=== PATIENT | male | born 1970 | race Two or more races ===

== ENCOUNTER 2019-04-01 09:15 | Observation (INO) | payer MEDICAID ==
[~2019-04-01] VITALS: Ht 175.3 cm; Wt 81.6 kg
[~2019-04-01 09:15] MED LIST: Pantoprazole Inj IVP ONE
--- NOTE | 2019-04-01 09:25 | NUR ---
ED Nurse Note: PT BROUGHT IN BY RA Jennings FROM HIS APARTMENT DUE TO OD OF UNKNOWN AMOUNT OF FENTANYL 20-30 MINS PRIOR ED ARRIVAL. PER EMS, PT'S AUNTIE GAVE 4MG NARCAN INTRANASAL AND ANOTHER 4MG NARCAN GIVEN BY EMS EN ROUTE. AAO X4, RESTLESS WITH GENERALIZED TREMORS NOTED. NO RESPIRATORY DISTRESS. PT VOMITED A LARGE AMOUNT OF UNDIGESTED FOOD.
--- NOTE | 2019-04-01 09:45 | NUR ---
ED Nurse Note: CALLED RT TO SET UP END TIDAL CO2 MONITORING PER ERMD ORDER. 38MMHG READING AT THIS TIME.
[2019-04-01 09:54] VITALS: BP 149/109
--- NOTE | 2019-04-01 09:55 | NUR ---
ED Nurse Note: PT REFUSED FOR RN TO TAKE A LOOK INSIDE HIS SMALL WALLET. PT STATES THAT HE HAS MONEY IN THERE.
--- NOTE | 2019-04-01 10:02 | Emergency Room Report ---
History of Present Illness General Chief Complaint: Overdose Source: EMS Present Illness HPI Brought in by EMS. His girlfriend called because he was not breathing. Paramedics found him with a respiratory rate of 6. They gave him 4 of Narcan intranasally. Patient woke up gradually and started vomiting. He thought that he was smoking marijuana but apparently was laced with fentanyl. The patient is unable to answer other questions at this time. Allergies: Coded Allergies: No Known Allergies (Unverified , 04/01/19) Patient History Limited by: medical condition Past Medical History: see triage record Social History: Reports: drug use; Denies: smoking Social History Narrative With girlfriend Reviewed Nursing Documentation: PMH: Agreed; PSxH: Agreed Review of Systems All Other Systems: limited Physical Exam Vital Signs Date Time Temp Pulse Resp B/P (MAP) Pulse Ox O2 Delivery O2 Flow Rate FiO2 04/01/19 09:15 96.8 106 31 105/76 (86) 94 Room Air Sp02 EP Interpretation: reviewed, abnormal - Interpreted as low by me General Appearance: mild distress - Vomiting, lethargic Head: normocephalic Eyes: bilateral eye PERRL, bilateral eye Scleral Injection ENT: moist mucus membranes, other - Some blood coming from his nose Neck: full range of motion, supple, no bony tend Respiratory: chest non-tender, lungs clear, normal breath sounds Cardiovascular #1: regular rate, rhythm, no edema Cardiovascular #2: 2+ radial (L) Gastrointestinal: soft, no guarding, no rebound, other - Vomiting guaiac positive material, overweight Musculoskeletal: digits/nails normal, normal range of motion Neurologic: motor strength/tone normal, DTRs symmetric, sensory intact, oriented - X2 Psychiatric: depressed affect Skin: no rash, other - Tattoos Medical Decision Making Diagnostic Impression: Primary Impression: Accidental fentanyl overdose Qualified Codes: T40.4X1A - Poisoning by other synthetic narcotics, accidental (unintentional), initial encounter Additional Impressions: GI bleed Qualified Codes: K92.2 - Gastrointestinal hemorrhage, unspecified Amphetamine abuse ER Course Patient presents after inadvertent fentanyl overdose and receiving Narcan. Differential includes fentanyl overdose, electrolyte imbalance, aspiration, acute anoxic damage to brain and heart, other substance ingestion amongst others. Patient will be evaluated with EKG, chest x-ray and labs. Although his lethargic he has a nonfocal neurologic exam and CT of the head is not indicated. He will receive repeat neurologic evaluations and may need to be placed on a Narcan drip.. He is vomiting guaiac positive material and will be treated with Protonix. Type and Rh sent. Also treated with antiemetic. Patient is placed on CO2 monitor. CO2 monitor 38. EKG without injury. care management coordinator sinus rhythm. Chest x-ray no aspiration. Labs with normal H&H. Tox screen positive for amphetamines. Patient still somnolent. Does wake with shaking. CO2 39 (about the same). Due to GI bleed and OD, needs observation. At time of discharge consideration for giving prescription for Narcan. Laboratory Tests Test 04/01/19 09:30 04/01/19 10:30 White Blood Count 9.3 K/UL (4.8-10.8) Red Blood Count 5.35 M/UL (4.70-6.10) Hemoglobin 17.2 G/DL (14.2-18.0) Hematocrit 50.3 % (42.0-52.0) Mean Corpuscular Volume 94 FL (80-99) Mean Corpuscular Hemoglobin 32.2 PG (27.0-31.0) H Mean Corpuscular Hemoglobin Concent 34.3 G/DL (32.0-36.0) Red Cell Distribution Width 11.6 % (11.6-14.8) Platelet Count 357 K/UL (150-450) Mean Platelet Volume 5.0 FL (6.5-10.1) L Neutrophils (%) (Auto) 35.5 % (45.0-75.0) L Lymphocytes (%) (Auto) 52.6 % (20.0-45.0) H Monocytes (%) (Auto) 8.8 % (1.0-10.0) Eosinophils (%) (Auto) 1.9 % (0.0-3.0) Basophils (%) (Auto) 1.2 % (0.0-2.0) Sodium Level 141 MMOL/L (136-145) Potassium Level 3.8 MMOL/L (3.5-5.1) Chloride Level 100 MMOL/L (98-107) Carbon Dioxide Level 32 MMOL/L (21-32) Anion Gap 9 mmol/L (5-15) Blood Urea Nitrogen 13 mg/dL (7-18) Creatinine 1.2 MG/DL (0.55-1.30) Estimate Glomerular Filtration Rate > 60 mL/min (>60) Glucose Level 167 MG/DL (74-106) H Lactic Acid Level 3.70 mmol/L (0.4-2.0) H 1.10 mmol/L (0.66-2.22) Calcium Level 8.9 MG/DL (8.5-10.1) Total Bilirubin 0.4 MG/DL (0.2-1.0) Aspartate Amino Transferase (AST) 30 U/L (15-37) Alanine Aminotransferase (ALT) 72 U/L (12-78) Alkaline Phosphatase 95 U/L (46-116) Total Creatine Kinase 158 U/L (26-308) Troponin I 0.000 ng/mL (0.000-0.056) Total Protein 7.5 G/DL (6.4-8.2) Albumin 3.8 G/DL (3.4-5.0) Globulin 3.7 g/dL Albumin/Globulin Ratio 1.0 (1.0-2.7) Salicylates Level 1.6 ug/mL (2.8-20) L Acetaminophen Level < 2 MCG/ML (10-30) L Serum Alcohol < 3 mg/dL Urine Color Pale yellow Urine Appearance Clear Urine pH 6 (4.5-8.0) Urine Specific [place] 1.020 (1.005-1.035) Urine Protein 1+ (NEGATIVE) H Urine Glucose (UA) Negative (NEGATIVE) Urine Ketones Negative (NEGATIVE) Urine Blood 1+ (NEGATIVE) H Urine Nitrite Negative (NEGATIVE) Urine Bilirubin Negative (NEGATIVE) Urine Urobilinogen Normal MG/DL (0.0-1.0) Urine Leukocyte Esterase Negative (NEGATIVE) Urine RBC 0-2 /HPF (0 - 0) H Urine WBC 0-2 /HPF (0 - 0) Urine Squamous Epithelial Cells Occasional /LPF Urine Bacteria Occasional /HPF (NONE) Urine Hyaline Casts 0-2 /LPF (NONE) H Urine Fine Granular Casts 0-2 /LPF (NONE) H Urine Opiates Screen Negative (NEGATIVE) Urine Barbiturates Screen Negative (NEGATIVE) Phencyclidine (PCP) Screen Positive (NEGATIVE) H Urine Amphetamines Screen Positive (NEGATIVE) H Urine Benzodiazepines Screen Negative (NEGATIVE) Urine Cocaine Screen Negative (NEGATIVE) Urine Marijuana (THC) Screen Positive (NEGATIVE) H EKG Diagnostic Results Rate: normal Rhythm: NSR ST Segments: no acute changes Rhythm Strip Diag. Results EP Interpretation: yes Rhythm: NSR, no PVC's, no ectopy Chest X-Ray Diagnostic Results Chest X-Ray Diagnostic Results : Chest X-Ray Ordered: Yes # of Views/Limited/Complete: 1 View Indication: Other EP Interpretation: Yes Interpretation: no consolidation, no effusion, no pneumothorax Impression: No acute disease Electronically Signed by: Electronically signed by Guillaume Michele MD Last Vital Signs Date Time Temp Pulse Resp B/P (MAP) Pulse Ox O2 Delivery O2 Flow Rate FiO2 04/01/19 12:15 97.0 98 17 154/91 99 Room Air Status: improved Disposition: PLACE IN OBSERVATION Condition: Serious Scripts Unable to Obtain Active Prescriptions or Reported Meds Referrals: NOT CHOSEN IPA/,REFERRING (PCP) Guillaume Michele MD Apr 01, 2019 10:02
--- NOTE | 2019-04-01 10:11 | NUR ---
ED Nurse Note: PT IS CALMER AT THIS TIME. END TIDAL CO2 AT [address] MORROW AWARE.
[2019-04-01 10:13] LABS: BASOPHILS % (AUTO) 1.2 % (0.0-2.0); EOSINOPHILS % (AUTO) 1.9 % (0.0-3.0); HEMATOCRIT 50.3 % (42.0-52.0); HEMOGLOBIN 17.2 G/DL (14.2-18.0); LYMPHOCYTES % (AUTO) 52.6 % (20.0-45.0); MEAN CORPUSCULAR VOLUME 94 FL (80-99); MONOCYTES % (AUTO) 8.8 % (1.0-10.0); NEUTROPHILS % (AUTO) 35.5 % (45.0-75.0); PLATELET COUNT 357 K/UL (150-450); RED BLOOD COUNT 5.35 M/UL (4.70-6.10); RED CELL DISTRIBUTION WIDTH 11.6 % (11.6-14.8); WHITE BLOOD COUNT 9.3 K/UL (4.8-10.8)
[2019-04-01 10:15] LABS: ANION GAP 9 mmol/L (5-15); BLOOD UREA NITROGEN 13 mg/dL (7-18); CALCIUM 8.9 MG/DL (8.5-10.1); CARBON DIOXIDE 32 MMOL/L (21-32); CHLORIDE 100 MMOL/L (98-107); CREATININE 1.2 MG/DL (0.55-1.30); POTASSIUM 3.8 MMOL/L (3.5-5.1); SODIUM 141 MMOL/L (136-145)
[2019-04-01 10:20] LABS: ALANINE AMINOTRANSFERASE 72 U/L (12-78); ALBUMIN 3.8 G/DL (3.4-5.0); ALKALINE PHOSPHATASE 95 U/L (46-116); ASPARTATE AMINO TRANSFERASE 30 U/L (15-37); BILIRUBIN,TOTAL 0.4 MG/DL (0.2-1.0); CREATINE KINASE 158 U/L (26-308)
--- NOTE | 2019-04-01 10:41 | Diagnostic Imaging Report ---
Indication: Shortness of breath Technique: One view of the chest Comparison: none Findings: Lungs and pleural spaces are clear. The heart size is normal. Impression: No acute process
--- NOTE | 2019-04-01 10:42 | NUR ---
ED Nurse Note: PT SPEAKING OVER HIS PHONE WITH FULL SENTENCES.
[2019-04-01 11:00] LABS: APPEARANCE,URINE CLEAR; BILIRUBIN, URINE NEGATIVE (NEGATIVE); COLOR,URINE PALE YELLOW; GLUCOSE, URINE (UA) NEGATIVE (NEGATIVE); KETONES,URINE NEGATIVE (NEGATIVE); LEUKOCYTE ESTERASE ,URINE NEGATIVE (NEGATIVE); NITRITE,URINE NEGATIVE (NEGATIVE); PH,URINE 6 (4.5-8.0); PROTEIN,URINE 1+ (NEGATIVE); UROBILINOGEN,URINE NORMAL MG/DL (0.0-1.0)
[2019-04-01 11:43] VITALS: BP 154/91
[2019-04-01] MEDS ORDERED: LORazepam Inj 2mg/ml 1ml IV PRN (12:15)
[2019-04-01 12:30] VITALS: BP 146/84
[2019-04-01] MEDS: D5 1/2NS 1,000 ML IV SCH (12:40)
--- NOTE | 2019-04-01 13:00 | NUR ---
NURSE NOTES: Patient stable AOx4 but drowzy. NO complaints of pain and no s/sx of distress. RR even and unlabored on RA. Belongings including phone and wallet checked but pt refusing for RNs to count his blair. Leads placed on patient. Bed low and locked. Will continue to monitor.
[2019-04-01 14:01] VITALS: BP 146/84
--- NOTE | 2019-04-01 15:23 | History & Physical ---
History and Physical History & Physicial Dictated for Int Med-Dr Barger no. [id number] Luke Solomon MD Apr 01, 2019 15:23
[2019-04-01 16:00] VITALS: BP_SYST 138; BP_SYST 143; BP_DIAS 75; BP_DIAS 87
--- NOTE | 2019-04-01 17:00 | NUR ---
NURSE NOTES: Pt o2 sat 91-92. Pt placed on 2L NC. O2 now 98%.
--- NOTE | 2019-04-01 19:30 | NUR ---
NURSE NOTES: Received report from JASON De La Cruz. Patient is awake, lying in semi parada's; resting comfortably. A/Ox4. Denies pain at this time. No signs of acute distress noted. Checked IV site and flushed. No erythema, bleeding or infiltration noted. Bed at lowest position, brakes on, siderailsx2. Call light within reach. Will continue to monitor.
--- NOTE | 2019-04-01 19:49 | NUR ---
HAND-OFF: Report given to Ana GOMEZ. Patient stable.
[2019-04-01 20:00] VITALS: BP_SYST 137; BP_SYST 144; BP_DIAS 78; BP_DIAS 88
[2019-04-01] MEDS: Heparin 5000 units/ml inj SUBQ SCH (21:27)
--- NOTE | 2019-04-01 22:00 | History and Physical Report ---
DATE OF ADMISSION: 04/01/2019 CHIEF COMPLAINT: The patient is a 48-year-old, male, who presents with a chief complaint of respiratory failure. HISTORY OF PRESENT ILLNESS: The patient states he was smoking marijuana last evening, The patient states his marijuana was apparently with Fentanyl. The patient's girlfriend awoke this morning and the patient was not breathing. EMS was called. The patient's respiration rate was approximately 6 per minute. The patient was given Narcan with some relief. The patient was transported to [facility]. The patient is admitted with respiratory failure and opioid overdose. REVIEW OF SYSTEMS: CONSTITUTIONAL: The patient denies weight loss or weight gain. The patient denies fevers or chills. HEENT: The patient denies ear or throat pain. The patient denies headache. CARDIOVASCULAR: The patient denies palpitations or chest pain. CHEST: The patient complains of depressed breathing. The patient complains of decreased respiratory rate as above. The patient denies wheezes. ABDOMEN: The patient denies nausea, vomiting, diarrhea, or constipation. GENITOURINARY: The patient denies dysuria or increased frequency of urination. NEUROMUSCULAR: The patient denies seizures or generalized weakness. PAST MEDICAL HISTORY: The patient denies. PAST SURGICAL HISTORY: The patient denies. CURRENT MEDICATIONS: The patient denies. ALLERGIES: No known drug allergies. SOCIAL HISTORY: The patient lives with his girlfriend. The patient works as a caregiver. The patient admits to tobacco use of one-quarter pack per day. The patient admits to alcohol use on the weekends. The patient admits to marijuana use as above. The patient denies drug abuse. PHYSICAL EXAMINATION: VITAL SIGNS: Temperature 96.8, respirations 23, pulse 106, and blood pressure 149/109. GENERAL: The patient is a well-developed and well-nourished male, in no apparent distress. HEENT: Eyes, pupils are equal and responsive to light and accommodation. Extraocular movements are intact. NECK: Supple without lymphadenopathy. CHEST: Lungs are clear to auscultation bilaterally without wheezes or rales. CARDIOVASCULAR: Regular rhythm and rate. S1, S2 are normal without murmurs, rubs, or gallops. ABDOMEN: Soft, nontender, and nondistended. Positive bowel sounds. No evidence of hepatosplenomegaly. Currently, no rebound or guarding noted. EXTREMITIES: Negative for clubbing, cyanosis, or edema. RECTAL/GENITAL: Refused. NEUROLOGIC: Cranial nerves II through XII are grossly intact without focal deficits. Motor strength is 5/5 bilaterally. Deep tendon reflexes are 2+ plantar. LABORATORY STUDIES: WBC 9.2, hemoglobin 17.2, hematocrit 50.3, and platelets 357,000. Sodium 141, potassium 3.8, chloride 100, CO2 32, BUN 13, creatinine 1.2, and glucose 167. Lactic acid 3.70. Troponin 0.0. Urine toxicology was positive for PCP, methamphetamine, and marijuana. Urinalysis showed 1+ protein and 1+ blood with 0 to 2 wbc's. ASSESSMENT: This is a 48-year-old male. 1. Opioid overdose. 2. Respiratory failure secondary to opiate overdose. TREATMENT: Opiate overdose/respiratory failure. The patient received Narcan in the emergency room. The patient is currently arousable. The patient will have his diet slowly advanced to clear liquids. Luke Solomon M.D. DR: SLY JOB#: [id number] CC:
[2019-04-02] VITALS: BP 107/70
--- NOTE | 2019-04-02 01:41 | NUR ---
NURSE NOTES: Resting throughout the night. No significant change of condition noted. Will continue to monitor.
--- NOTE | 2019-04-02 01:45 | History and Physical Report ---
DATE OF ADMISSION: 04/01/2019 CHIEF COMPLAINT: The patient is a 48-year-old, male, who presents with a chief complaint of respiratory failure. HISTORY OF PRESENT ILLNESS: The patient states he was smoking marijuana last evening. The patient states his marijuana was apparently laced with fentanyl. The patient's girlfriend awoke this morning and the patient was not breathing. EMS was called. The patient's respiration rate was approximately 6 per minute. The patient was given Narcan with some relief. The patient was transported to [facility]. The patient is admitted with respiratory failure and opioid overdose. REVIEW OF SYSTEMS: CONSTITUTIONAL: The patient denies weight loss or weight gain. The patient denies fevers or chills. HEENT: The patient denies ear or throat pain. The patient denies headache. CARDIOVASCULAR: The patient denies palpitations or chest pain. CHEST: The patient complains of depressed breathing. The patient complains of decreased respiratory rate as above. The patient denies wheezes. ABDOMEN: The patient denies nausea, vomiting, diarrhea, or constipation. GENITOURINARY: The patient denies dysuria or increased frequency of urination. NEUROMUSCULAR: The patient denies seizures or generalized weakness. PAST MEDICAL HISTORY: The patient denies. PAST SURGICAL HISTORY: The patient denies. CURRENT MEDICATIONS: The patient denies. ALLERGIES: No known drug allergies. SOCIAL HISTORY: The patient lives with his girlfriend. The patient works as a caregiver. The patient admits to tobacco use of one-quarter pack per day. The patient admits to alcohol use on the weekends. The patient admits to marijuana use as above. The patient denies drug abuse. PHYSICAL EXAMINATION: VITAL SIGNS: Temperature 96.8, respirations 23, pulse 106, and blood pressure 149/109. GENERAL: The patient is a well-developed and well-nourished male, in no apparent distress. HEENT: Eyes, pupils are equal and responsive to light and accommodation. Extraocular movements are intact. NECK: Supple without lymphadenopathy. CHEST: Lungs are clear to auscultation bilaterally without wheezes or rales. CARDIOVASCULAR: Regular rhythm and rate. S1, S2 are normal without murmurs, rubs, or gallops. ABDOMEN: Soft, nontender, and nondistended. Positive bowel sounds. No evidence of hepatosplenomegaly. Currently, no rebound or guarding noted. EXTREMITIES: Negative for clubbing, cyanosis, or edema. RECTAL/GENITAL: Refused. NEUROLOGIC: Cranial nerves II through XII are grossly intact without focal deficits. Motor strength is 5/5 bilaterally. Deep tendon reflexes are 2+ plantar. LABORATORY STUDIES: WBC 9.2, hemoglobin 17.2, hematocrit 50.3, and platelets 357,000. Sodium 141, potassium 3.8, chloride 100, CO2 32, BUN 13, creatinine 1.2, and glucose 167. Lactic acid 3.70. Troponin 0.0. Urine toxicology was positive for PCP, methamphetamine, and marijuana. Urinalysis showed 1+ protein and 1+ blood with 0 to 2 wbc's. ASSESSMENT: This is a 48-year-old male. 1. Opioid overdose. 2. Respiratory failure secondary to opiate overdose. TREATMENT: Opiate overdose/respiratory failure. The patient received Narcan in the emergency room. The patient is currently arousable. The patient will have his diet slowly advanced to clear liquids. Luke Solomon M.D. DR: SLY JOB#: [id number] CC:
[2019-04-02 04:00] VITALS: BP 126/75
[2019-04-02 06:52] LABS: BASOPHILS % (AUTO) 0.4 % (0.0-2.0); EOSINOPHILS % (AUTO) 0.8 % (0.0-3.0); HEMOGLOBIN 16.6 G/DL (14.2-18.0); LYMPHOCYTES % (AUTO) 21.9 % (20.0-45.0); MEAN CORPUSCULAR VOLUME 94 FL (80-99); MONOCYTES % (AUTO) 4.8 % (1.0-10.0); NEUTROPHILS % (AUTO) 72.1 % (45.0-75.0); PLATELET COUNT 313 K/UL (150-450); RED BLOOD COUNT 5.13 M/UL (4.70-6.10); RED CELL DISTRIBUTION WIDTH 11.4 % (11.6-14.8); WHITE BLOOD COUNT 13.5 K/UL (4.8-10.8)
--- NOTE | 2019-04-02 07:15 | NUR ---
HAND-OFF: Report given to JASON Ortiz. Plan of care endorsed.
[2019-04-02 07:32] LABS: ALANINE AMINOTRANSFERASE 60 U/L (12-78); ALBUMIN 3.3 G/DL (3.4-5.0); ALBUMIN/GLOBULIN RATIO 0.9 (1.0-2.7); ALKALINE PHOSPHATASE 86 U/L (46-116); ANION GAP 8 mmol/L (5-15); ASPARTATE AMINO TRANSFERASE 27 U/L (15-37); BILIRUBIN,TOTAL 1.1 MG/DL (0.2-1.0); BLOOD UREA NITROGEN 10 mg/dL (7-18); CALCIUM 8.6 MG/DL (8.5-10.1); CARBON DIOXIDE 29 MMOL/L (21-32); CHLORIDE 101 MMOL/L (98-107); CREATININE 0.9 MG/DL (0.55-1.30); POTASSIUM 3.7 MMOL/L (3.5-5.1); SODIUM 138 MMOL/L (136-145)
[2019-04-02 07:33] LABS: BILIRUBIN,DIRECT 0.4 MG/DL (0.0-0.3)
--- NOTE | 2019-04-02 07:39 | NUR ---
NURSE NOTES:Received report from JASON Strange. Patient awake and eating breakfast (clears) at shift change. Breathing easily with no sign of cardiac distress. Denies pain. Denies nausea. Stated "I do feel much better" when asked by this RN. Cont'd with plan of care. Bed in lowest, locked position and bed alarm on.
[2019-04-02] MEDS: D5 1/2NS 1,000 ML IV SCH (07:55)
--- NOTE | 2019-04-02 07:55 | NUR ---
NURSE NOTES: 97% SpO2 on RA. Weaned off of 2L NC--no sign of sob or respiratory depression.
[2019-04-02 08:00] VITALS: BP 136/76
[2019-04-02] MEDS: Heparin 5000 units/ml inj SUBQ SCH (08:01)
--- NOTE | 2019-04-02 11:04 | NUR ---
Social Work This Sw received a consult due substance abuse. This Sw met with patient who explains that he has been smoking
--- NOTE | 2019-04-02 11:07 | NUR ---
Social Work This SW received a consult due to substance abuse. This SW met with patient who explains he has been smoking marijuana for years, while last night he had started smoking some that was laced with fentanyl. Patient expressed that he had a "near experience" has encouraged him to get some help with his addiction (prefers outpatient support groups instead of inpatient treatment). This Sw provided listing for NA groups; patient denied any suicidal ideations or a history of depression. Patient plans to discharge to home with his sister to assist, as needed.
--- NOTE | 2019-04-02 11:20 | Consultation ---
History of Present Illness General Date patient seen: Apr 02, 2019 Chief Complaint: Overdose Present Illness HPI Brought in by EMS. His girlfriend called because he was not breathing. Paramedics found him with a respiratory rate of 6. They gave him 4 of Narcan intranasally. Patient woke up gradually and started vomiting. He thought that he was smoking marijuana but apparently is laced with fentanyl. Allergies: Coded Allergies: No Known Allergies (Unverified , 04/01/19) Medication History Unable to Obtain Active Prescriptions or Reported Meds Patient History Healthcare decision maker Resuscitation status Full Code Advanced Directive on File Past Medical/Surgical History Past Medical/Surgical History: (1) No pertinent past medical history Review of Systems All Other Systems: negative except mentioned in HPI Physical Exam General Appearance: WD/WN Lines, tubes and drains: peripheral HEENT: normocephalic, atraumatic Neck: non-tender, normal alignment Respiratory/Chest: chest wall non-tender, lungs clear Breasts: no masses Cardiovascular/Chest: normal rate, no JVD Abdomen: normal bowel sounds Genitourinary/Rectal: normal genital exam Last 24 Hour Vital Signs Date Time Temp Pulse Resp B/P (MAP) Pulse Ox O2 Delivery O2 Flow Rate FiO2 04/02/19 09:00 Nasal Cannula 2.0 04/02/19 08:00 98.0 81 20 136/76 (96) 98 04/02/19 08:00 75 04/02/19 04:00 97.2 83 20 126/75 (92) 98 04/02/19 04:00 76 04/02/19 00:00 81 04/02/19 00:00 98.1 86 20 107/70 (82) 99 04/01/19 21:00 Nasal Cannula 2.0 04/01/19 20:00 98.1 88 20 137/88 (104) 98 04/01/19 20:00 85 04/01/19 16:00 106 04/01/19 16:00 97.8 86 20 138/75 (96) 93 04/01/19 12:57 Room Air 04/01/19 12:30 98.6 81 20 146/84 (104) 98 04/01/19 12:15 97.0 98 17 154/91 99 Room Air 04/01/19 11:43 97.0 98 17 154/91 99 Room Air Intake and Output 04/01/19 04/02/19 18:59 06:59 Intake Total 1575 ml Balance 1575 ml Intake IV Total 1575 ml # Voids 1 4 Laboratory Tests Test 04/02/19 05:44 White Blood Count 13.5 K/UL (4.8-10.8) H Red Blood Count 5.13 M/UL (4.70-6.10) Hemoglobin 16.6 G/DL (14.2-18.0) Hematocrit 48.0 % (42.0-52.0) Mean Corpuscular Volume 94 FL (80-99) Mean Corpuscular Hemoglobin 32.4 PG (27.0-31.0) H Mean Corpuscular Hemoglobin Concent 34.6 G/DL (32.0-36.0) Red Cell Distribution Width 11.4 % (11.6-14.8) L Platelet Count 313 K/UL (150-450) Mean Platelet Volume 4.8 FL (6.5-10.1) L Neutrophils (%) (Auto) 72.1 % (45.0-75.0) Lymphocytes (%) (Auto) 21.9 % (20.0-45.0) Monocytes (%) (Auto) 4.8 % (1.0-10.0) Eosinophils (%) (Auto) 0.8 % (0.0-3.0) Basophils (%) (Auto) 0.4 % (0.0-2.0) Sodium Level 138 MMOL/L (136-145) Potassium Level 3.7 MMOL/L (3.5-5.1) Chloride Level 101 MMOL/L (98-107) Carbon Dioxide Level 29 MMOL/L (21-32) Anion Gap 8 mmol/L (5-15) Blood Urea Nitrogen 10 mg/dL (7-18) Creatinine 0.9 MG/DL (0.55-1.30) Estimat Glomerular Filtration Rate > 60 mL/min (>60) Glucose Level 94 MG/DL (74-106) Calcium Level 8.6 MG/DL (8.5-10.1) Total Bilirubin 1.1 MG/DL (0.2-1.0) H Direct Bilirubin 0.4 MG/DL (0.0-0.3) H Aspartate Amino Transf (AST/SGOT) 27 U/L (15-37) Alanine Aminotransferase (ALT/SGPT) 60 U/L (12-78) Alkaline Phosphatase 86 U/L (46-116) Total Protein 6.9 G/DL (6.4-8.2) Albumin 3.3 G/DL (3.4-5.0) L Globulin 3.6 g/dL Albumin/Globulin Ratio 0.9 (1.0-2.7) L Height (Feet): 5 Height (Inches): 9.00 Weight (Pounds): 180 Medications Current Medications Medications (Trade) Dose Ordered Sig/Jorge Route PRN Reason Start Time Stop Time Status Last Admin Dose Admin Dextrose (Dextrose 50%) 25 ml Q30M PRN IV Hypoglycemia 04/01/19 12:15 05/01/19 12:14 Dextrose (Dextrose 50%) 50 ml Q30MIN PRN IV Hypoglycemia 04/01/19 12:15 05/01/19 12:14 Dextrose/Sodium Chloride 1,000 ml @ 50 mls/hr Q20H IV 04/01/19 12:10 05/01/19 12:09 04/02/19 07:55 Heparin Sodium (Porcine) (Heparin 5000 units/ml) 5,000 units EVERY 12 HOURS SUBQ 04/01/19 21:00 05/01/19 20:59 04/02/19 08:01 Lorazepam (Ativan 2mg/ml 1ml) 0.5 mg Q4H PRN IV For Anxiety 04/01/19 12:15 04/08/19 12:14 Ondansetron HCl (Zofran) 4 mg Q6H PRN IVP Nausea & Vomiting 04/01/19 12:15 05/01/19 12:14 Assessment/Plan Problem List: (1) Accidental fentanyl overdose ICD Codes: T40.4X1A - Poisoning by other synthetic narcotics, accidental ( unintentional), initial encounter SNOMED: 813058257 (2) No pertinent past medical history ICD Codes: Z78.9 - Other specified health status SNOMED: 715258842 Assessment/Plan: pt is back to her normal health status. will discharge home Kayleigh Mullen MD Apr 02, 2019 11:20
--- NOTE | 2019-04-02 11:55 | NUR ---
NURSE NOTES: Discharged home with family member. Patient aox4 with calm, cooperative affect. Patient walking with steady gait. No sign of respiratory or cardiac distress. Patient stated "I feel fine, and I want to go home.I'm ready." Tolerated diet with no nvd. Reviewed dc instructions with patient and family including follow up in 1 week with primary and encouragemetn to use services referred by SW. Parisa stated he would comply. Walked with patient and Paty down to parking lot--patient refused wheechair. Removed IV. REmoved tele. Removed id band. Provided patient with sweatshirt for his transport home since patient came with no shirt at admission. Verified all belongings with patient at time of dc including cell phone and "pouch" wallet. Patient and family stated they had no further questions at this time.
--- NOTE | 2019-04-02 15:44 | NUR ---
CASE MANAGEMENT: INITIAL REVIEW 48 YR OLD MALE FROM HOME CC: OVERDOSE SI: RESP FAILURE SECONDARY TO OPIATE OVERDOSE/ GIB 96.8 106 31 105/76 94% ON RA LACTIC ACID 3.70 IS: IVF NS BOLUS X1 IV PROTONIX X1 CXR ECG : 2E TELE UNIT DCP: DC HOME WHEN MEDICALLY STABLE
--- NOTE | 2019-04-02 17:27 | Discharge Summary ---
Discharge Summary Hospital Course Date of Admission Apr 01, 2019 at 09:50 Date of Discharge Apr 02, 2019 at 11:50 Admitting Diagnosis OVERDOSE, GI BLEED HPI Mike Johnson is a 48 year old male who was admitted on Apr 01, 2019 at 09:50 for Overdose/Gastroinstestinal Bleed Hospital Course Discharge Discharge Disposition Patient was discharged to Aníbal Barger MD Apr 02, 2019 17:26
--- NOTE | 2019-04-02 20:15 | Discharge Summary ---
DATE OF ADMISSION: 04/01/2019 DATE OF DISCHARGE: 04/02/2019 HOSPITAL COURSE: This is a 48-year-old gentleman with past medical history significant for substance abuse, who presented to the hospital after he was noted to have respiratory failure. Shortly after initial evaluation, the patient was admitted to the hospital with acute respiratory failure due to the opiate overdose. Throughout the hospital course, the patient was consulted with Dr. Mullen, Pulmonary Critical Care. The patient's status gradually improved and subsequently was discharged home today to be followed up with primary doctor as outpatient. FINAL DIAGNOSES: 1. Opiate overdose. 2. Acute respiratory failure. MEDICATIONS ON DISCHARGE: Continue discharge medication list. ACTIVITY: As tolerated. DIET: Regular diet. The patient was advised to follow up with primary doctor within one week. Aníbal Barger M.D. DR: Jil JOB#: [id number] CC:
--- NOTE | 2019-04-03 15:35 | Cardiology Report ---
APPROVED REPORT EKG Measurement Heart [id number] Normal sinus rhythm Normal ECG
== END 2019-04-02 11:50 | disposition home or self-care (01) ==
LOC: EDBD 09:15 → EMR 09:48 → INTOOBSV 09:50 → 2E 09:50 → EDBEDREQ 11:15
DX: T40.4X1A Poisoning by other synthetic narcotics, accidental (unintentional), initial encounter (principal); J96.90 Respiratory failure, unspecified, unspecified whether with hypoxia or hypercapnia; F17.210 Nicotine dependence, cigarettes, uncomplicated; X58.XXXA Exposure to other specified factors, initial encounter; Y92.9 Unspecified place or not applicable; K92.2 Gastrointestinal hemorrhage, unspecified; F15.10 Other stimulant abuse, uncomplicated
CPT/HCPCS: 36415; 71045; 80053; 80307; 81003; 82248; 82550; 83605; 84484; 85025; 86850; 86900; 86901; 93005; 94664; 96360; 96361; 96374; G0480; G0481; J1644; S0164; Z7502; 99284; J7030